=== PATIENT | female | born 1975 | race Caucasian/White ===

== ENCOUNTER 2025-05-11 17:45 | Emergency (ER) | payer BC ==
[~2025-05-11] VITALS: Ht 170.2 cm; Wt 106.0 kg
[2025-05-11 17:54] VITALS: BP 165/94; PULSE 94; O2SAT 99
--- NOTE | 2025-05-11 18:25 | RADIOLOGY REPORT ---
EXAM: DI FOOT, COMPLETE (3VW MIN) REASON FOR EXAM: FOOT PAIN TECHNIQUE: AP, lateral, and oblique views of the right foot are submitted for review. COMPARISON: None FINDINGS: There is surgical fixation of the calcaneus and the 5th metatarsal and the 1st metatarsal. No acute fracture or dislocation is identified. There is mild diffuse soft tissue swelling about the forefoot. IMPRESSION: No acute fracture or dislocation. Mild diffuse soft tissue swelling about the forefoot.
[2025-05-11] MEDS ORDERED: HYDR-3972 PO (19:03)
--- NOTE | 2025-05-11 19:04 | Physician Documentation ---
History of Present Illness ~ Chief Complaint: Foot pain Stated Complaint: FOOT PAIN Time Seen by MD: 18:55 OK to notify your PCP?: Yes Source: patient Mode of Arrival: POV Exam Limitations: no limitations HPI 50-year-old female here with right foot pain which occurred when she was getting out of her pool just prior to arrival. She states she stepped wrong on her foot and put most of her weight on the lateral side of her foot. She does have a history of surgery on this foot with plates and screws in there and she wanted to make sure she did not break any of the hardware. She states the pain is making it difficult for her to bear weight on her foot. The area is also swollen. No pain in her ankle. No pre arrival treatment. Tetanus witin 5 years: No Medication Reconciliation Allergies: Coded Allergies: No Known Allergies (Unverified , 05/11/25) Scheduled PRN Hydrocodone Bit/Acetaminophen (Hydrocodon-Acetaminophn 10-325 tablet), 1 TAB PO TID PRN PRN for pain Past Medical History Past Medical History: No Pertinent History Past Surgical History: orthopedic surgeries Review of Systems All Other Systems at this time: Reviewed and Negative Physical Exam Vital Signs: Temperature: 98.4, Source: Temporal, Heart Rate: 94, Respiratory Rate: 16, BP: 165/94, Pulse Oximetry: 99, Weight: 106.000 Oxygen Flow Rate: 0 Physical Exam msk: Right foot tenderness over the 5th metatarsal where there is some mild swelling and ecchymosis no erythema no abrasions. Normal inspection of ankle and no tenderness over the ankle joint. General Appearance: Alert, WD/WN. NAD. HEENT: NCAT, PERRL, EOMI. Neck: Supple, trachea midline. Cardiovascular: RRR. No m/r/g. Lungs: CTAB. Breathing unlabored Skin: Warm/dry, normal color Neurological: Alert and oriented x4 Psychiatric: Affect congruent with mood. Progress Progress Note Patient: WHITNEY LOGAN Medical Record: [id number] [facility] : 1975, Age: 50 Sex: Female Location: ER Patient Status: REG ER Service Date/Time: 05/11/251756 Ordering Physician: RONEL QUINTANILLA MD Exam: FOOT, COMPLETE (3VW MIN) EXAM: DI FOOT, COMPLETE (3VW MIN) REASON FOR EXAM: FOOT PAIN TECHNIQUE: AP, lateral, and oblique views of the right foot are submitted for review. COMPARISON: None FINDINGS: There is surgical fixation of the calcaneus and the 5th metatarsal and the 1st metatarsal. No acute fracture or dislocation is identified. There is mild diffuse soft tissue swelling about the forefoot. IMPRESSION: No acute fracture or dislocation. Mild diffuse soft tissue swelling about the forefoot. Results/Orders Reviewed/noted all lab results: Yes Results/Orders Orders - ASHLEY GA General Nursing Order (05/11/25 18:59) Completed Orders - ASHLEY GA Hydrocodone/Apap 10/325 ([place] 10/325mg (05/11/25 19:00) Vital Signs 05/11/25 05/11/25 05/11/25 17:54 19:21 19:31 Temp 98.4 98.4 Pulse 94 Resp 16 16 B/P (MAP) 165/94 Pulse Ox 99 O2 Flow Rate 0 Medical Decision Making Foot Diff Dx:Considerations: Include: Abrasion, Arthritis, Cellulitis, Contusion, Dislocation, DJD, Fracture-metatarsal, Fracture-phalynx, Fracture- tarsal, Gout, Hematoma, Ingrown toenail, Laceration, Malunion, Neurovascular injury, Open fracture, Paronychia, Puncture, Rheumatoid, Sprain, Septic, Subungual hematoma, Ulcer Departure Time of Disposition: 18:06 Disposition: 01 HOME / SELF CARE / HOMELESS Impression: Primary Impression: Foot pain Qualified Codes: M79.671 - Pain in right foot Condition: Stable Discharge Instructions: Foot Pain Additional Instructions: IF PAIN PERSISTS, WITH THE HARDWARE IN YOUR FOOT, I WOULD RECOMMEND CT SCAN OR AT LEAST A REPEAT XRAY IN 14DAYS. WEAR BOOT/USE CRUTCHES GRADUALLY ADVANCE WEIGHT BEARING TOLERATED Referrals: NO PRIMARY CARE PROVIDER (PCP) Prescriptions Hydrocodone Bit/Acetaminophen (Hydrocodon-Acetaminophn 10-325 tablet) 10mg- 325mg Tablet 1 TAB PO TID PRN PRN for pain for 5 Days, #15 TAB DX: FOOT PAIN ACUTE M79.671 Prov: ASHLEY GA 05/11/25 Education Educated: Patient Educated regarding: diagnosis, treatment, need for follow up Signature Scribe Signature: x Attestation: ASHLEY Streeter May 11, 2025 19:04
[2025-05-11 19:21] VITALS: RESP 16
[2025-05-11] MEDS: HYDROcodone/acetaminophen 10/325mg tab PO ONE (19:21)
[2025-05-11 19:31] VITALS: TEMP 98.4
== END 2025-05-11 19:32 | disposition home or self-care (01) ==
LOC: ER 17:46
DX: M79.671 Pain in right foot (principal)
CPT/HCPCS: 73630; 99283; L4360